=== PATIENT | female | born 1960 | race Caucasian/White ===

== ENCOUNTER 2022-03-09 06:33 | Day surgery (SDC) | payer MEDICAID ==
[~2022-03-09] VITALS: Ht 152.4 cm; Wt 83.9 kg
[2022-03-09] MEDS ORDERED: SIMETHICONE 40 MG/0.6 ML ML ONE (07:07)
[2022-03-09] MEDS: MEPERIDINE 100 MG INJ. 100 MG/ML VIAL ONE ×3 (08:42→08:55)
[2022-03-09] MEDS: MIDAZOLAM HCL 5 MG/5 ML VIAL ONE ×3 (08:42→08:49)
[2022-03-09] MEDS ORDERED: MIDAZOLAM HCL 5 MG/5 ML VIAL ONE (08:55)
[2022-03-09 16:29] VITALS: BP_SYST 116
== END 2022-03-09 10:30 | disposition home or self-care (01) ==
LOC: SMU 06:33 → SDS 06:33
PROVIDERS: ATTEND Internal Medicine Gastroenterology
DX: Z12.11 Encounter for screening for malignant neoplasm of colon (principal); K63.5 Polyp of colon; K57.30 Diverticulosis of large intestine without perforation or abscess without bleeding; K64.8 Other hemorrhoids; Z86.010 Personal history of colon polyps; Z79.899 Other long term (current) drug therapy; Z20.822 Contact with and (suspected) exposure to COVID-19
CPT/HCPCS: 36415 ×2; 45380; 45385; 87426; 82962; 88305; 99152; 99153; U0003; G0378; J2250; J2175